=== PATIENT | female | born 1965 | race Caucasian/White ===

== ENCOUNTER → 2021-07-05 | Outpatient (CLI) | payer OTHER ==
[~2021-07-05] MED LIST: CEFUROXIME500 MG PO; KEFLEX CAP 500500 MG PO; MEDROL4 MG PO; NORCO 5-325 TA1 EACH PO; NORFLEX 100 MG100 MG PO; OMNICEF 300 MG300 MG PO; ONDANSETRON ODT4 MG PO; PHENERGAN 25 MG25 M1 PO; PREDNISONE 50 M50 MG PO; Voltaren Gel 1 % TOP
== END ==
LOC: KOH-I 15:20
DX: R06.00 Dyspnea, unspecified (principal)
CPT/HCPCS: 71046

== ENCOUNTER → 2021-08-12 | Outpatient (CLI) | payer OTHER | LOC: KOH-I 14:57 | DX: M51.36 Other intervertebral disc degeneration, lumbar region (principal); M51.37 Other intervertebral disc degeneration, lumbosacral region | CPT/HCPCS: 72148 ==